=== PATIENT | male | born 1940 | race African-American/Black ===

== ENCOUNTER 2022-12-19 13:14 | Inpatient (IN) | payer MEDICARE, OTHER ==
[2022-12-19 13:57] LABS: #Eosinphils 0.1 thou/uL (0.0-0.7); #Monocytes 0.5 thou/uL (0.11-0.59); #Neutrophils 6.3 thou/uL (1.40-6.50); %Basophils 0.1 % (0.0-1.0); %Eosinophils 1.1 % (0.0-10.0); %Lymphocytes 12.8 % (21.0-51.0); %Monocytes 6.4 % (0.0-10.0); %Neutrophils 79.3 % (42.0-75.0); Hematocrit 33.1 % (42.0-52.0); Hemoglobin 10.8 g/dL (14.0-18.0); Mean Corpuscular HGB CONC 32.6 g/dL (32.0-36.0); Mean Corpuscular Hemoglobin 28.3 pg (27.0-31.0); Mean Corpuscular Volume 86.9 fl (78.0-98.0); Mean Platelet Volume 10.3 fL (7.4-10.4); Platelet Count 218 10x3/uL (130-400); RBC Distribution Width 15.9 % (11.5-14.5); Red Blood Cell (RBC) Count 3.81 mill/uL (4.70-6.10)
[2022-12-19 14:25] LABS: ALT (SGPT) 10 U/L (8-55); AST (SGOT) 20 U/L (5-34); Albumin 3.8 g/dL (3.4-4.8); Alkaline Phosphatase 71 U/L (40-110); Anion Gap 16 mmol/L (10-20); BUN (Urea Nitrogen) 33 mg/dL (8.4-25.7); Bilirubin, Total 0.9 mg/dL (0.2-1.2); Calc. Creatinine Clearance 0 mL/min (70-130); Calcium 9.4 mg/dL (7.8-10.44); Carbon Dioxide 22 mmol/L (23-31); Chloride 106 mmol/L (98-107); Estimated GFR 25; Globulin 4.2 g/dL (2.4-3.5); Glucose 122 mg/dL (83-110); Magnesium 2.1 mg/dL (1.6-2.6); Potassium 4.6 mmol/L (3.5-5.1); Sodium 139 mmol/L (136-145)
[2022-12-19 15:06] LABS: Acetaminophen Less than 10 mcg/mL (10.0-30.0); Alcohol Less than 10.0 mg/dL (Less than 10); Salicylate Less than 8.0 mg/dL (15.0-30.0)
[2022-12-19 16:25] LABS: Bacteria/HPF None Seen HPF (None Seen); Bilirubin Negative (Negative); Blood, Urine Negative (Negative); CAUTI Indications for Culture Alt mental st,lethar; Clarity Clear (Clear); Glucose, Urine (Dipstick) Normal (Negative); Ketone, Urine Negative (Negative); Leukocyte Negative Leu/uL (Negative); Nitrite Negative (Negative); Protein, Urine (Dipstick) Negative (Neg-Trace); RBC/HPF 0-3 HPF (0-3); Specific Gravity, Urine 1.012 (1.002-1.036); Squamous Epithelial 0-3 HPF (0-3); Urobilinogen Normal mg/dL (Less than 2); WBC/HPF 0-3 HPF (0-3)
[2022-12-19 16:28] LABS: Amphetamine Not Detected (NotDetected); Barbiturates Screen Not Detected (NotDetected); Benzodiazepine Screen Not Detected (NotDetected); Cocaine Metabolite Screen Not Detected (NotDetected); Methadone Not Detected (NotDetected); Methamphetamine Not Detected (NotDetected); Opiate Screen Not Detected (NotDetected); Oxycodone Screen Not Detected (NotDetected); Phencyclidine (PCP) Not Detected (NotDetected); THC/Cannabinoid Screen Not Detected (NotDetected); Tricyclic Screen Not Detected (NotDetected)
[2022-12-19 16:31] LABS: Urine Culture Reflex No No
[2022-12-19] MEDS ORDERED: Ondansetron PF 4 MG/2 ML Vial IVP PRN (16:50)
[2022-12-19] MEDS ORDERED: Ondansetron ODT 4 MG TAB PO PRN (16:50)
[2022-12-19] MEDS ORDERED: Acetaminophen 325 MG TAB PO PRN (16:50)
[2022-12-19] MEDS ORDERED: DEXTROSE 10% IVPB SCH (17:00)
[2022-12-19] MEDS ORDERED: Heparin 10,000 UNITS/ 10 ML VIAL SLOW IVP SCH (17:00)
[2022-12-19] MEDS ORDERED: WATER IVPB SCH (17:00)
[2022-12-19] MEDS ORDERED: Heparin 25,000 units/D5W 500 ML IVPB SCH (17:00)
[2022-12-19 17:02] LABS: Troponin I 0.022 ng/mL (< 0.028)
[2022-12-19] MEDS ORDERED: Heparin 10,000 UNITS/ 10 ML VIAL ONE (17:24)
[2022-12-19] MEDS ORDERED: Heparin 25,000 units/D5W 500 ML ONE (17:24)
[2022-12-19 17:50] LABS: Hematocrit 34.4 % (42.0-52.0); Hemoglobin 11.2 g/dL (14.0-18.0); Platelet Count 235 10x3/uL (130-400)
[2022-12-19 18:05] LABS: INR-International Normal Ratio 1.1; PTT 31.3 sec (22.9-36.1); Prothrombin Time 14.5 sec (12.0-14.7)
[2022-12-19] MEDS ORDERED: hydrALAZINE 20 MG/ML VIAL ONE (18:06)
[2022-12-19 20:31] VITALS: BMI 15.2
[2022-12-19] MEDS ORDERED: hydrALAZINE 20 MG/ML VIAL SLOW IVP SCH (20:45)
[2022-12-19] MEDS ORDERED: Ziprasidone 20 MG VIAL IM SCH (20:45)
[2022-12-19] MEDS ORDERED: Heparin 5,000 UNITS/ML VIAL SC SCH (21:00)
[2022-12-19] MEDS ORDERED: Sterile Water 10 ML VIAL FS PRN (21:00)
[2022-12-19] MEDS: Sodium Chloride 0.9% 1,000 ML IV SCH (22:32)
[2022-12-19] MEDS: hydrALAZINE 25 MG TAB PO SCH (23:00)
[2022-12-20] MEDS: hydrALAZINE 25 MG TAB PO SCH ×3 (04:32→21:39)
[2022-12-20] MEDS: Carvedilol 6.25 MG TAB PO SCH ×2 (04:33→17:07)
[2022-12-20 04:55] LABS: #Eosinphils 0.1 thou/uL (0.0-0.7); #Monocytes 0.5 thou/uL (0.11-0.59); #Neutrophils 6.7 thou/uL (1.40-6.50); %Basophils 0.1 % (0.0-1.0); %Eosinophils 1.3 % (0.0-10.0); %Lymphocytes 14.4 % (21.0-51.0); %Monocytes 5.8 % (0.0-10.0); %Neutrophils 78.2 % (42.0-75.0); Hematocrit 38.6 % (42.0-52.0); Hemoglobin 12.7 g/dL (14.0-18.0); Mean Corpuscular HGB CONC 32.9 g/dL (32.0-36.0); Mean Corpuscular Hemoglobin 28.4 pg (27.0-31.0); Mean Corpuscular Volume 86.4 fl (78.0-98.0); Mean Platelet Volume 10.3 fL (7.4-10.4); Platelet Count 228 10x3/uL (130-400); RBC Distribution Width 15.9 % (11.5-14.5); Red Blood Cell (RBC) Count 4.47 mill/uL (4.70-6.10); White Blood Cell (WBC) Count 8.6 10x3/uL (4.8-10.8)
[2022-12-20 05:21] LABS: ALT (SGPT) 9 U/L (8-55); AST (SGOT) 19 U/L (5-34); Albumin 3.6 g/dL (3.4-4.8); Alkaline Phosphatase 72 U/L (40-110); Anion Gap 16 mmol/L (10-20); BUN (Urea Nitrogen) 28 mg/dL (8.4-25.7); Bilirubin, Total 0.9 mg/dL (0.2-1.2); Calc. Creatinine Clearance 20 mL/min (70-130); Calcium 9.5 mg/dL (7.8-10.44); Carbon Dioxide 22 mmol/L (23-31); Chloride 105 mmol/L (98-107); Estimated GFR 31; Globulin 4.3 g/dL (2.4-3.5); Glucose 81 mg/dL (83-110); Potassium 4.5 mmol/L (3.5-5.1); Protein, Total 7.9 g/dL (5.8-8.1); Sodium 138 mmol/L (136-145)
[2022-12-20] MEDS: Sodium Chloride 0.9% 1,000 ML IV SCH ×4 (06:13→21:43)
[2022-12-20] MEDS: NIFEdipine XL 60 MG ER.TAB PO SCH (07:56)
[2022-12-20] MEDS: Aspirin 81 mg Enteric Coated Tablet PO SCH (07:56)
[2022-12-20 10:46] LABS: Free T4 (Free Thyroxine) 1.03 ng/dL (0.70-1.48); Thyroid Stimulating Hormone 0.1308 uIU/mL (0.35-4.94)
[2022-12-20] MEDS ORDERED: Communication Order-Pharmacy FS SCH (15:52)
[2022-12-20 17:21] LABS: Hematocrit 33.8 % (42.0-52.0); Hemoglobin 11.1 g/dL (14.0-18.0); Platelet Count 205 10x3/uL (130-400)
[2022-12-21 04:27] LABS: #Eosinphils 0.1 thou/uL (0.0-0.7); #Monocytes 0.4 thou/uL (0.11-0.59); #Neutrophils 5.1 thou/uL (1.40-6.50); %Basophils 0.2 % (0.0-1.0); %Lymphocytes 13.6 % (21.0-51.0); %Monocytes 5.8 % (0.0-10.0); %Neutrophils 78.1 % (42.0-75.0); Hemoglobin 10.7 g/dL (14.0-18.0); Mean Corpuscular HGB CONC 33.4 g/dL (32.0-36.0); Mean Corpuscular Hemoglobin 28.4 pg (27.0-31.0); Mean Corpuscular Volume 84.9 fl (78.0-98.0); Mean Platelet Volume 10.3 fL (7.4-10.4); Platelet Count 204 10x3/uL (130-400); RBC Distribution Width 15.7 % (11.5-14.5); Red Blood Cell (RBC) Count 3.77 mill/uL (4.70-6.10); White Blood Cell (WBC) Count 6.5 10x3/uL (4.8-10.8)
[2022-12-21 04:58] LABS: ALT (SGPT) Less than 7 U/L (8-55); AST (SGOT) 15 U/L (5-34); Albumin 3.3 g/dL (3.4-4.8); Alkaline Phosphatase 62 U/L (40-110); Anion Gap 13 mmol/L (10-20); BUN (Urea Nitrogen) 26 mg/dL (8.4-25.7); Bilirubin, Total 0.7 mg/dL (0.2-1.2); Calc. Creatinine Clearance 23 mL/min (70-130); Calcium 8.7 mg/dL (7.8-10.44); Carbon Dioxide 21 mmol/L (23-31); Chloride 106 mmol/L (98-107); Estimated GFR 36; Globulin 3.7 g/dL (2.4-3.5); Glucose 91 mg/dL (83-110); Potassium 3.9 mmol/L (3.5-5.1); Sodium 136 mmol/L (136-145)
[2022-12-21] MEDS: Sodium Chloride 0.9% 1,000 ML IV SCH ×2 (05:36→13:01)
[2022-12-21] MEDS: Carvedilol 6.25 MG TAB PO SCH ×2 (08:33→16:04)
[2022-12-21] MEDS: NIFEdipine XL 60 MG ER.TAB PO SCH (08:33)
[2022-12-21] MEDS: Aspirin 81 mg Enteric Coated Tablet PO SCH (08:33)
[2022-12-21] MEDS: hydrALAZINE 25 MG TAB PO SCH ×3 (08:33→20:47)
[2022-12-21 16:57] LABS: Hematocrit 31.5 % (42.0-52.0); Hemoglobin 10.4 g/dL (14.0-18.0); Platelet Count 210 10x3/uL (130-400)
[2022-12-22] MEDS: Sodium Chloride 0.9% 1,000 ML IV SCH ×2 (03:24→16:06)
[2022-12-22 04:06] LABS: #Eosinphils 0.1 thou/uL (0.0-0.7); #Monocytes 0.3 thou/uL (0.11-0.59); %Basophils 0.2 % (0.0-1.0); %Eosinophils 1.1 % (0.0-10.0); %Lymphocytes 14.1 % (21.0-51.0); %Monocytes 5.3 % (0.0-10.0); Hemoglobin 10.1 g/dL (14.0-18.0); Mean Corpuscular HGB CONC 33.7 g/dL (32.0-36.0); Mean Corpuscular Hemoglobin 28.8 pg (27.0-31.0); Mean Corpuscular Volume 85.5 fl (78.0-98.0); Mean Platelet Volume 11.8 fL (7.4-10.4); Platelet Count 180 10x3/uL (130-400); RBC Distribution Width 15.9 % (11.5-14.5); Red Blood Cell (RBC) Count 3.51 mill/uL (4.70-6.10); White Blood Cell (WBC) Count 6.3 10x3/uL (4.8-10.8)
[2022-12-22] MEDS ORDERED: FLU VACC QS2023(65UP)/MF59C/PF 60 MCG/0.5 ML SYRINGE IM ONE (09:00)
[2022-12-22] MEDS: NIFEdipine XL 60 MG ER.TAB PO SCH (09:53)
[2022-12-22] MEDS: hydrALAZINE 25 MG TAB PO SCH ×4 (09:53→23:42)
[2022-12-22] MEDS: Carvedilol 6.25 MG TAB PO SCH ×2 (09:54→16:09)
[2022-12-22] MEDS: Aspirin 81 mg Enteric Coated Tablet PO SCH (09:54)
[2022-12-22] MEDS: Folic Acid 1 MG TAB PO SCH ×2 (20:42→23:41)
[2022-12-22] MEDS: Multivit, Therapeutic 1 TAB PO SCH ×2 (20:42→23:42)
[2022-12-22] MEDS: Senokot S 8.6-50 MG TAB PO SCH ×2 (20:42→23:42)
[2022-12-22] MEDS: Cyanocobalamin (Vitamin B-12) 1,000 MCG TAB PO SCH ×2 (20:42→23:41)
[2022-12-23] MEDS: Sodium Chloride 0.9% 1,000 ML IV SCH ×2 (04:45→16:52)
[2022-12-23 05:08] LABS: #Eosinphils 0.1 thou/uL (0.0-0.7); #Monocytes 0.4 thou/uL (0.11-0.59); #Neutrophils 5.2 thou/uL (1.40-6.50); %Eosinophils 1.5 % (0.0-10.0); %Lymphocytes 15.5 % (21.0-51.0); %Monocytes 5.7 % (0.0-10.0); %Neutrophils 77.2 % (42.0-75.0); Hemoglobin 10.6 g/dL (14.0-18.0); Mean Corpuscular HGB CONC 33.1 g/dL (32.0-36.0); Mean Corpuscular Hemoglobin 28.7 pg (27.0-31.0); Mean Corpuscular Volume 86.7 fl (78.0-98.0); Mean Platelet Volume 10.3 fL (7.4-10.4); Platelet Count 234 10x3/uL (130-400); RBC Distribution Width 15.9 % (11.5-14.5); Red Blood Cell (RBC) Count 3.69 mill/uL (4.70-6.10); White Blood Cell (WBC) Count 6.7 10x3/uL (4.8-10.8)
[2022-12-23 05:29] LABS: Anion Gap 13 mmol/L (10-20); BUN (Urea Nitrogen) 23 mg/dL (8.4-25.7); Calc. Creatinine Clearance 26 mL/min (70-130); Calcium 9.2 mg/dL (7.8-10.44); Carbon Dioxide 21 mmol/L (23-31); Chloride 109 mmol/L (98-107); Estimated GFR 43; Glucose 79 mg/dL (83-110); Magnesium 1.8 mg/dL (1.6-2.6); Phosphorus 2.5 mg/dL (2.3-4.7); Potassium 4.4 mmol/L (3.5-5.1); Sodium 139 mmol/L (136-145)
[2022-12-23] MEDS: Carvedilol 6.25 MG TAB PO SCH ×2 (08:13→16:51)
[2022-12-23] MEDS: NIFEdipine XL 60 MG ER.TAB PO SCH (08:13)
[2022-12-23] MEDS: hydrALAZINE 25 MG TAB PO SCH ×3 (08:14→20:31)
[2022-12-23] MEDS: Senokot S 8.6-50 MG TAB PO SCH ×2 (08:14→20:31)
[2022-12-23] MEDS: Aspirin 81 mg Enteric Coated Tablet PO SCH (08:14)
[2022-12-23] MEDS ORDERED: Magnesium 2 GM/50 ML(in water) 2 GM in Premix Bag 1 BAG IVPB SCH (16:00)
[2022-12-23] MEDS: Multivit, Therapeutic 1 TAB PO SCH (20:31)
[2022-12-23] MEDS: Folic Acid 1 MG TAB PO SCH (20:32)
[2022-12-23] MEDS: Cyanocobalamin (Vitamin B-12) 1,000 MCG TAB PO SCH (20:32)
[2022-12-23 22:49] LABS: Hemoglobin 10.9 g/dL (14.0-18.0); Platelet Count 237 10x3/uL (130-400)
[2022-12-24 04:50] LABS: #Eosinphils 0.1 thou/uL (0.0-0.7); #Monocytes 0.3 thou/uL (0.11-0.59); #Neutrophils 4.5 thou/uL (1.40-6.50); %Basophils 0.2 % (0.0-1.0); %Lymphocytes 17.2 % (21.0-51.0); %Monocytes 5.6 % (0.0-10.0); %Neutrophils 75.7 % (42.0-75.0); Hematocrit 35.2 % (42.0-52.0); Hemoglobin 11.3 g/dL (14.0-18.0); Mean Corpuscular HGB CONC 32.1 g/dL (32.0-36.0); Mean Corpuscular Hemoglobin 28.7 pg (27.0-31.0); Mean Corpuscular Volume 89.3 fl (78.0-98.0); Mean Platelet Volume 10.8 fL (7.4-10.4); Platelet Count 234 10x3/uL (130-400); RBC Distribution Width 15.9 % (11.5-14.5); Red Blood Cell (RBC) Count 3.94 mill/uL (4.70-6.10); White Blood Cell (WBC) Count 5.9 10x3/uL (4.8-10.8)
[2022-12-24 05:01] LABS: Anion Gap 14 mmol/L (10-20); BUN (Urea Nitrogen) 23 mg/dL (8.4-25.7); Calc. Creatinine Clearance 30 mL/min (70-130); Calcium 8.9 mg/dL (7.8-10.44); Carbon Dioxide 18 mmol/L (23-31); Chloride 111 mmol/L (98-107); Estimated GFR 51; Glucose 77 mg/dL (83-110); Magnesium 2.4 mg/dL (1.6-2.6); Potassium 4.3 mmol/L (3.5-5.1); Sodium 139 mmol/L (136-145)
[2022-12-24] MEDS: Sodium Chloride 0.9% 1,000 ML IV SCH ×2 (06:28→19:45)
[2022-12-24] MEDS: Carvedilol 6.25 MG TAB PO SCH ×2 (08:44→16:17)
[2022-12-24] MEDS: hydrALAZINE 25 MG TAB PO SCH ×3 (08:44→21:38)
[2022-12-24] MEDS: NIFEdipine XL 60 MG ER.TAB PO SCH (08:44)
[2022-12-24] MEDS: Senokot S 8.6-50 MG TAB PO SCH ×2 (08:44→21:37)
[2022-12-24] MEDS: Aspirin 81 mg Enteric Coated Tablet PO SCH (08:44)
[2022-12-24] MEDS: Cyanocobalamin (Vitamin B-12) 1,000 MCG TAB PO SCH (21:37)
[2022-12-24] MEDS: Multivit, Therapeutic 1 TAB PO SCH (21:37)
[2022-12-24] MEDS: Folic Acid 1 MG TAB PO SCH (21:38)
[2022-12-25] MEDS: Sodium Chloride 0.9% 1,000 ML IV SCH ×2 (04:58→21:29)
[2022-12-25 05:18] LABS: #Eosinphils 0.1 thou/uL (0.0-0.7); #Monocytes 0.3 thou/uL (0.11-0.59); #Neutrophils 6.1 thou/uL (1.40-6.50); %Basophils 0.3 % (0.0-1.0); %Eosinophils 0.9 % (0.0-10.0); %Lymphocytes 13.8 % (21.0-51.0); %Monocytes 3.3 % (0.0-10.0); %Neutrophils 81.3 % (42.0-75.0); Hematocrit 34.3 % (42.0-52.0); Hemoglobin 11.5 g/dL (14.0-18.0); Mean Corpuscular HGB CONC 33.5 g/dL (32.0-36.0); Mean Corpuscular Hemoglobin 28.3 pg (27.0-31.0); Mean Platelet Volume 10.2 fL (7.4-10.4); Platelet Count 244 10x3/uL (130-400); RBC Distribution Width 15.7 % (11.5-14.5); Red Blood Cell (RBC) Count 4.07 mill/uL (4.70-6.10); White Blood Cell (WBC) Count 7.5 10x3/uL (4.8-10.8)
[2022-12-25 05:44] LABS: Anion Gap 13 mmol/L (10-20); BUN (Urea Nitrogen) 22 mg/dL (8.4-25.7); Calc. Creatinine Clearance 29 mL/min (70-130); Calcium 8.9 mg/dL (7.8-10.44); Carbon Dioxide 19 mmol/L (23-31); Chloride 109 mmol/L (98-107); Estimated GFR 50; Glucose 80 mg/dL (83-110); Sodium 137 mmol/L (136-145)
[2022-12-25 05:48] LABS: Mean Corpuscular Volume 84.3 fl (78.0-98.0)
[2022-12-25] MEDS: NIFEdipine XL 60 MG ER.TAB PO SCH (10:24)
[2022-12-25] MEDS: Aspirin 81 mg Enteric Coated Tablet PO SCH (10:24)
[2022-12-25] MEDS: Senokot S 8.6-50 MG TAB PO SCH ×2 (10:24→21:24)
[2022-12-25] MEDS: hydrALAZINE 25 MG TAB PO SCH ×3 (10:24→21:24)
[2022-12-25] MEDS: Carvedilol 6.25 MG TAB PO SCH ×2 (10:25→18:10)
[2022-12-25 17:07] LABS: Hematocrit 32.5 % (42.0-52.0); Hemoglobin 10.4 g/dL (14.0-18.0); Platelet Count 230 10x3/uL (130-400)
[2022-12-25] MEDS: Folic Acid 1 MG TAB PO SCH (21:24)
[2022-12-25] MEDS: Cyanocobalamin (Vitamin B-12) 1,000 MCG TAB PO SCH (21:24)
[2022-12-25] MEDS: Multivit, Therapeutic 1 TAB PO SCH (21:24)
[2022-12-26 05:25] LABS: #Monocytes 0.3 thou/uL (0.11-0.59); #Neutrophils 5.6 thou/uL (1.40-6.50); %Basophils 0.2 % (0.0-1.0); %Eosinophils 0.5 % (0.0-10.0); %Lymphocytes 11.3 % (21.0-51.0); %Monocytes 3.9 % (0.0-10.0); %Neutrophils 83.8 % (42.0-75.0); Hematocrit 30.1 % (42.0-52.0); Hemoglobin 10.1 g/dL (14.0-18.0); Mean Corpuscular HGB CONC 33.6 g/dL (32.0-36.0); Mean Corpuscular Hemoglobin 28.7 pg (27.0-31.0); Mean Corpuscular Volume 85.5 fl (78.0-98.0); Mean Platelet Volume 10.5 fL (7.4-10.4); Platelet Count 214 10x3/uL (130-400); RBC Distribution Width 15.9 % (11.5-14.5); Red Blood Cell (RBC) Count 3.52 mill/uL (4.70-6.10); White Blood Cell (WBC) Count 6.7 10x3/uL (4.8-10.8)
[2022-12-26 05:52] LABS: Anion Gap 11 mmol/L (10-20); BUN (Urea Nitrogen) 25 mg/dL (8.4-25.7); Calc. Creatinine Clearance 32 mL/min (70-130); Calcium 8.7 mg/dL (7.8-10.44); Carbon Dioxide 19 mmol/L (23-31); Chloride 113 mmol/L (98-107); Estimated GFR 54; Glucose 72 mg/dL (83-110); Potassium 3.9 mmol/L (3.5-5.1); Sodium 139 mmol/L (136-145)
[2022-12-26] MEDS: hydrALAZINE 25 MG TAB PO SCH ×4 (09:42→20:55)
[2022-12-26] MEDS: NIFEdipine XL 60 MG ER.TAB PO SCH (09:42)
[2022-12-26] MEDS: Senokot S 8.6-50 MG TAB PO SCH ×2 (09:42→20:54)
[2022-12-26] MEDS: Carvedilol 6.25 MG TAB PO SCH ×2 (09:43→17:55)
[2022-12-26] MEDS: Sodium Chloride 0.9% 1,000 ML IV SCH (09:43)
[2022-12-26] MEDS: Aspirin 81 mg Enteric Coated Tablet PO SCH (09:43)
[2022-12-26] MEDS: Cyanocobalamin (Vitamin B-12) 1,000 MCG TAB PO SCH (20:54)
[2022-12-26] MEDS: Folic Acid 1 MG TAB PO SCH (20:55)
[2022-12-26] MEDS: Multivit, Therapeutic 1 TAB PO SCH (20:55)
[2022-12-27] MEDS: Sodium Chloride 0.9% 1,000 ML IV SCH ×2 (03:58→20:03)
[2022-12-27 06:32] LABS: #Eosinphils 0.1 thou/uL (0.0-0.7); #Monocytes 0.3 thou/uL (0.11-0.59); #Neutrophils 5.2 thou/uL (1.40-6.50); %Basophils 0.2 % (0.0-1.0); %Eosinophils 1.1 % (0.0-10.0); %Lymphocytes 12.7 % (21.0-51.0); %Monocytes 5.2 % (0.0-10.0); %Neutrophils 80.3 % (42.0-75.0); Hematocrit 31.9 % (42.0-52.0); Hemoglobin 10.5 g/dL (14.0-18.0); Mean Corpuscular HGB CONC 32.9 g/dL (32.0-36.0); Mean Corpuscular Hemoglobin 28.2 pg (27.0-31.0); Mean Corpuscular Volume 85.5 fl (78.0-98.0); Mean Platelet Volume 10.4 fL (7.4-10.4); Platelet Count 219 10x3/uL (130-400); Red Blood Cell (RBC) Count 3.73 mill/uL (4.70-6.10); White Blood Cell (WBC) Count 6.5 10x3/uL (4.8-10.8)
[2022-12-27 07:01] LABS: Anion Gap 14 mmol/L (10-20); BUN (Urea Nitrogen) 22 mg/dL (8.4-25.7); Calc. Creatinine Clearance 33 mL/min (70-130); Calcium 8.9 mg/dL (7.8-10.44); Carbon Dioxide 18 mmol/L (23-31); Chloride 114 mmol/L (98-107); Estimated GFR 57; Glucose 63 mg/dL (83-110); Potassium 4.1 mmol/L (3.5-5.1); Sodium 142 mmol/L (136-145)
[2022-12-27] MEDS: NIFEdipine XL 60 MG ER.TAB PO SCH (15:58)
[2022-12-27] MEDS: Carvedilol 6.25 MG TAB PO SCH ×2 (15:58→20:03)
[2022-12-27] MEDS: Aspirin 81 mg Enteric Coated Tablet PO SCH (15:59)
[2022-12-27] MEDS: hydrALAZINE 25 MG TAB PO SCH ×3 (15:59→20:28)
[2022-12-27] MEDS: Senokot S 8.6-50 MG TAB PO SCH ×2 (16:00→23:34)
[2022-12-27] MEDS ORDERED: Lorazepam 2 MG/ML VIAL SLOW IVP PRN (17:01)
[2022-12-27 18:44] LABS: Hematocrit 31.6 % (42.0-52.0); Hemoglobin 10.5 g/dL (14.0-18.0); Platelet Count 214 10x3/uL (130-400)
[2022-12-27] MEDS: Cyanocobalamin (Vitamin B-12) 1,000 MCG TAB PO SCH (20:14)
[2022-12-27] MEDS: Folic Acid 1 MG TAB PO SCH (20:14)
[2022-12-27] MEDS: Multivit, Therapeutic 1 TAB PO SCH (20:14)
[2022-12-27] MEDS ORDERED: hydrALAZINE 20 MG/ML VIAL SLOW IVP SCH (20:15)
[2022-12-28 05:34] LABS: #Eosinphils 0.1 thou/uL (0.0-0.7); #Monocytes 0.3 thou/uL (0.11-0.59); #Neutrophils 4.6 thou/uL (1.40-6.50); %Basophils 0.2 % (0.0-1.0); %Eosinophils 1.6 % (0.0-10.0); %Lymphocytes 12.8 % (21.0-51.0); %Monocytes 4.4 % (0.0-10.0); %Neutrophils 80.6 % (42.0-75.0); Hematocrit 31.9 % (42.0-52.0); Hemoglobin 10.6 g/dL (14.0-18.0); Mean Corpuscular HGB CONC 33.2 g/dL (32.0-36.0); Mean Corpuscular Hemoglobin 28.2 pg (27.0-31.0); Mean Corpuscular Volume 84.8 fl (78.0-98.0); Mean Platelet Volume 10.6 fL (7.4-10.4); Platelet Count 224 10x3/uL (130-400); RBC Distribution Width 16.3 % (11.5-14.5); Red Blood Cell (RBC) Count 3.76 mill/uL (4.70-6.10); White Blood Cell (WBC) Count 5.7 10x3/uL (4.8-10.8)
[2022-12-28] MEDS: Sodium Chloride 0.9% 1,000 ML IV SCH (05:48)
[2022-12-28 06:03] LABS: Anion Gap 13 mmol/L (10-20); BUN (Urea Nitrogen) 24 mg/dL (8.4-25.7); Calc. Creatinine Clearance 33 mL/min (70-130); Calcium 8.5 mg/dL (7.8-10.44); Carbon Dioxide 18 mmol/L (23-31); Chloride 114 mmol/L (98-107); Estimated GFR 56; Glucose 67 mg/dL (83-110); Potassium 3.8 mmol/L (3.5-5.1); Sodium 141 mmol/L (136-145)
[2022-12-28] MEDS: Carvedilol 6.25 MG TAB PO SCH ×2 (10:12→18:39)
[2022-12-28] MEDS: Aspirin 81 mg Enteric Coated Tablet PO SCH (10:12)
[2022-12-28] MEDS: hydrALAZINE 25 MG TAB PO SCH ×3 (10:12→22:47)
[2022-12-28] MEDS: NIFEdipine XL 60 MG ER.TAB PO SCH (10:12)
[2022-12-28] MEDS: Senokot S 8.6-50 MG TAB PO SCH ×2 (10:13→22:48)
[2022-12-28] MEDS: Dextrose 5 %-0.45 % NaCl 1,000 ML IV SCH ×2 (15:45→23:58)
[2022-12-28] MEDS ORDERED: hydrALAZINE 20 MG/ML VIAL SLOW IVP SCH (20:30)
[2022-12-28] MEDS: Folic Acid 1 MG TAB PO SCH (22:47)
[2022-12-28] MEDS: Cyanocobalamin (Vitamin B-12) 1,000 MCG TAB PO SCH (22:47)
[2022-12-28] MEDS: Multivit, Therapeutic 1 TAB PO SCH (22:47)
[2022-12-29 05:02] LABS: Hematocrit 30.2 % (42.0-52.0); Hemoglobin 10.1 g/dL (14.0-18.0); Hemoglobin 10.2 g/dL (14.0-18.0); Mean Corpuscular HGB CONC 33.8 g/dL (32.0-36.0); Mean Corpuscular Hemoglobin 28.7 pg (27.0-31.0); Mean Corpuscular Volume 84.8 fl (78.0-98.0); Mean Platelet Volume 10.5 fL (7.4-10.4); Platelet Count 204 10x3/uL (130-400); Platelet Count 214 10x3/uL (130-400); RBC Distribution Width 16.3 % (11.5-14.5); Red Blood Cell (RBC) Count 3.56 mill/uL (4.70-6.10)
[2022-12-29 05:13] LABS: Delete Auto Diff?? YES; Manual Diff?? YES
[2022-12-29 05:23] LABS: Anion Gap 13 mmol/L (10-20); BUN (Urea Nitrogen) 27 mg/dL (8.4-25.7); Calc. Creatinine Clearance 30 mL/min (70-130); Calcium 9.1 mg/dL (7.8-10.44); Carbon Dioxide 18 mmol/L (23-31); Chloride 115 mmol/L (98-107); Estimated GFR 52; Glucose 81 mg/dL (83-110); Potassium 3.7 mmol/L (3.5-5.1); Sodium 142 mmol/L (136-145)
[2022-12-29 05:42] LABS: Band 15 % (5-11); CellaVision Operator ID LAB.CLH1; Eosinophils 1 % (0-10); Hypochromia SLIGHT = 6-15 cells HPF (0-5); Large Platelets 6.8 % (0-5); Lymphocytes 3 % (21-51); Monocytes 3 % (0-10); Neutrophil 78 % (42-75); Platelet Adequacy Comment Platelets Normal; Polychromasia SLIGHT = 2-3 cells HPF (0-2); Total Cell Count 117
[2022-12-29] MEDS: Aspirin 81 mg Enteric Coated Tablet PO SCH (11:21)
[2022-12-29] MEDS: hydrALAZINE 25 MG TAB PO SCH ×3 (11:21→20:27)
[2022-12-29] MEDS: Carvedilol 6.25 MG TAB PO SCH ×2 (11:21→18:21)
[2022-12-29] MEDS: Senokot S 8.6-50 MG TAB PO SCH ×2 (11:21→20:27)
[2022-12-29] MEDS: NIFEdipine XL 60 MG ER.TAB PO SCH (11:21)
[2022-12-29 16:59] LABS: Hematocrit 29.2 % (42.0-52.0); Hemoglobin 9.7 g/dL (14.0-18.0); Platelet Count 190 10x3/uL (130-400)
[2022-12-29] MEDS: Dextrose 5 %-0.45 % NaCl 1,000 ML IV SCH (18:21)
[2022-12-29] MEDS: Cyanocobalamin (Vitamin B-12) 1,000 MCG TAB PO SCH (20:27)
[2022-12-29] MEDS: Folic Acid 1 MG TAB PO SCH (20:27)
[2022-12-29] MEDS: Multivit, Therapeutic 1 TAB PO SCH (20:27)
[2022-12-30] MEDS: Dextrose 5 %-0.45 % NaCl 1,000 ML IV SCH ×2 (04:18→16:49)
[2022-12-30] MEDS: Carvedilol 6.25 MG TAB PO SCH ×2 (08:07→16:49)
[2022-12-30] MEDS: Aspirin 81 mg Enteric Coated Tablet PO SCH (08:08)
[2022-12-30] MEDS: Senokot S 8.6-50 MG TAB PO SCH ×2 (08:08→22:17)
[2022-12-30] MEDS: NIFEdipine XL 60 MG ER.TAB PO SCH (08:08)
[2022-12-30] MEDS: hydrALAZINE 25 MG TAB PO SCH ×3 (08:08→22:16)
[2022-12-30] MEDS: Folic Acid 1 MG TAB PO SCH (22:17)
[2022-12-30] MEDS: Multivit, Therapeutic 1 TAB PO SCH (22:17)
[2022-12-30] MEDS: Cyanocobalamin (Vitamin B-12) 1,000 MCG TAB PO SCH (22:17)
[2022-12-31] MEDS: Carvedilol 6.25 MG TAB PO SCH ×2 (08:48→16:06)
[2022-12-31] MEDS: hydrALAZINE 25 MG TAB PO SCH ×3 (09:06→21:28)
[2022-12-31] MEDS: Aspirin 81 mg Enteric Coated Tablet PO SCH (09:06)
[2022-12-31] MEDS: NIFEdipine XL 60 MG ER.TAB PO SCH (09:06)
[2022-12-31] MEDS: Senokot S 8.6-50 MG TAB PO SCH ×2 (09:07→21:29)
[2022-12-31] MEDS: Dextrose 5 %-0.45 % NaCl 1,000 ML IV SCH (09:07)
[2022-12-31 17:17] LABS: Hematocrit 27.1 % (42.0-52.0); Platelet Count 183 10x3/uL (130-400)
[2022-12-31] MEDS: Multivit, Therapeutic 1 TAB PO SCH (21:28)
[2022-12-31] MEDS: Folic Acid 1 MG TAB PO SCH (21:28)
[2022-12-31] MEDS: Cyanocobalamin (Vitamin B-12) 1,000 MCG TAB PO SCH (21:28)
[2023-01-01] MEDS: Dextrose 5 %-0.45 % NaCl 1,000 ML IV SCH ×4 (04:24→12:48)
[2023-01-01 05:50] LABS: Hematocrit 27.5 % (42.0-52.0); Platelet Count 180 10x3/uL (130-400)
[2023-01-01] MEDS: Carvedilol 6.25 MG TAB PO SCH ×2 (10:16→17:38)
[2023-01-01] MEDS: hydrALAZINE 25 MG TAB PO SCH ×3 (10:18→20:57)
[2023-01-01] MEDS: Aspirin 81 mg Enteric Coated Tablet PO SCH (10:20)
[2023-01-01] MEDS: Senokot S 8.6-50 MG TAB PO SCH ×2 (10:21→20:57)
[2023-01-01] MEDS: NIFEdipine XL 60 MG ER.TAB PO SCH (10:21)
[2023-01-01] MEDS: Folic Acid 1 MG TAB PO SCH (20:57)
[2023-01-01] MEDS: Multivit, Therapeutic 1 TAB PO SCH (20:57)
[2023-01-01] MEDS: Cyanocobalamin (Vitamin B-12) 1,000 MCG TAB PO SCH (20:58)
[2023-01-02] MEDS: Dextrose 5 %-0.45 % NaCl 1,000 ML IV SCH ×2 (03:08→11:10)
[2023-01-02 08:14] VITALS: TEMP 97.5
[2023-01-02] MEDS: Carvedilol 6.25 MG TAB PO SCH (09:02)
[2023-01-02] MEDS: NIFEdipine XL 60 MG ER.TAB PO SCH (09:03)
[2023-01-02] MEDS: Aspirin 81 mg Enteric Coated Tablet PO SCH (09:03)
[2023-01-02] MEDS: hydrALAZINE 25 MG TAB PO SCH ×2 (09:03→14:33)
[2023-01-02] MEDS: Senokot S 8.6-50 MG TAB PO SCH (09:03)
[2023-01-02 09:04] VITALS: BP 184/87
== END 2023-01-02 14:47 | disposition hospice, home (50) | DRG 54 ==
LOC: SUATTDRO 13:14 → ERS 13:14 → 2NO 16:50 → OBSVTOIN 12-20 10:34 → SURG A 12-26 10:10
PROVIDERS: ADMIT Family Medicine; ATTEND Internal Medicine
DX: C79.31 Secondary malignant neoplasm of brain (principal); E43 Unspecified severe protein-calorie malnutrition; G93.41 Metabolic encephalopathy; G93.6 Cerebral edema; N17.9 Acute kidney failure, unspecified; I74.3 Embolism and thrombosis of arteries of the lower extremities; I82.432 Acute embolism and thrombosis of left popliteal vein; I82.412 Acute embolism and thrombosis of left femoral vein; R64 Cachexia; Z68.1 Body mass index [BMI] 19.9 or less, adult; J98.11 Atelectasis; C79.51 Secondary malignant neoplasm of bone; I13.0 Hypertensive heart and chronic kidney disease with heart failure and stage 1 through stage 4 chronic kidney disease, or unspecified chronic kidney disease; F03.90 Unspecified dementia, unspecified severity, without behavioral disturbance, psychotic disturbance, mood disturbance, and anxiety; E03.9 Hypothyroidism, unspecified; D50.9 Iron deficiency anemia, unspecified; I50.9 Heart failure, unspecified; M19.90 Unspecified osteoarthritis, unspecified site; M06.9 Rheumatoid arthritis, unspecified; F17.210 Nicotine dependence, cigarettes, uncomplicated; N18.31 Chronic kidney disease, stage 3a; I27.20 Pulmonary hypertension, unspecified; Z66 Do not resuscitate; Z88.0 Allergy status to penicillin; Z79.82 Long term (current) use of aspirin; Z79.899 Other long term (current) drug therapy; Z85.46 Personal history of malignant neoplasm of prostate; Z95.5 Presence of coronary angioplasty implant and graft; Z78.1 Physical restraint status
CPT/HCPCS: 36415; 36416; 70450; 70551; 71045; 71250; 76536; 78451; 80048; 80053; 80306; 80307; 81001; 82140; 83605; 83735; 83880; 84100; 84439; 84443; 84481; 84484; 85014; 85018; 85025; 85049; 85379; 85610; 85730; 87040; 93005; 93306; 93970; 96365; 96375; 96376; A9540; G0378; J0360; J1644; J1650; J2060; J3475; J7042; J7050